=== PATIENT | male | born 1965 | race Caucasian/White ===

== ENCOUNTER 2020-06-17 11:35 | Emergency (ER) | payer OTHER ==
[2020-06-17 12:06] VITALS: BP 107/74; PULSE 78; RESP 16; TEMP 98
[2020-06-17] MEDS ORDERED: THIAMINE 100 MG TAB PO STA (13:04)
--- NOTE | 2020-06-17 13:04 | ED ---
General Adult HPI - General Chief complaint: Alcohol Stated complaint: Alcohol withdrawl Time Seen by Provider: 06/17/20 12:03 Source: patient, RN notes reviewed Mode of arrival: wheelchair Limitations: no limitations - History of Present Illness Initial comments: Patient is a pleasant 5-year-old male presenting to the emergency department concerns regarding his alcohol use. Patient states he was at [facility] however he was intoxicated so they sent him here. Patient has no complaints at this time. Patient does admit to drinking alcohol, beers as well as fire ball daily. No depression. No suicidal thoughts. Patient requests a prescription for medical clearance so he can go back to [facility]. - Related Data Allergies Allergy/AdvReac Type Severity Reaction Status Date / Time No Known Allergies Allergy Verified 06/17/20 12:06 Review of Systems ROS Statement: Those systems with pertinent positive or pertinent negative responses have been documented in the HPI. ROS Other: All systems not noted in ROS Statement are negative. Constitutional: Denies: fever Eyes: Denies: eye pain ENT: Denies: ear pain Respiratory: Denies: cough Cardiovascular: Denies: chest pain Endocrine: Denies: fatigue Gastrointestinal: Denies: abdominal pain Genitourinary: Denies: dysuria Musculoskeletal: Denies: back pain Skin: Denies: rash Neurological: Denies: weakness Past Medical History Past Medical History: Hypertension History of Any Multi-Drug Resistant Organisms: None Reported Past Surgical History: No Surgical Hx Reported Past Psychological History: No Psychological Hx Reported Smoking Status: Current every day smoker Past Alcohol Use History: Abuse, Daily, Heavy Past Drug Use History: None Reported General Exam Limitations: no limitations General appearance: alert, in no apparent distress Head exam: Present: normocephalic Eye exam: Present: normal appearance Neck exam: Present: normal inspection Respiratory exam: Present: normal lung sounds bilaterally Cardiovascular Exam: Present: regular rate, normal rhythm GI/Abdominal exam: Present: soft. Absent: tenderness Extremities exam: Present: normal inspection Neurological exam: Present: alert, oriented X3, normal gait Psychiatric exam: Present: normal affect, normal mood Skin exam: Present: normal color Course Vital Signs 06/17/20 12:03 Temperature 98 F Pulse Rate 78 Respiratory 16 Rate Blood Pressure 107/74 O2 Sat by Pulse 98 Oximetry - Reevaluation(s) Reevaluation #1: 06/17/20 13:05 Patient is alert and oriented 3 and does demonstrate steady gait. Patient does have a female a company him who will take him back to [facility]. Disposition Clinical Impression: Alcoholic intoxication Disposition: HOME SELF-CARE Condition: Stable Instructions (If sedation given, give patient instructions): Alcohol Intoxication (ED), Alcohol Withdrawal (ED) Additional Instructions: Please head back to [facility] for probable admission and detox. Prescription provided stating that you are medically stable for [facility]. Return for confusion, worsening or change in symptoms or other concerns. Is patient prescribed a controlled substance at d/c from ED?: No Referrals: Patrick Mora [STAFF PHYSICIAN] - 1-2 days Time of Disposition: 13:06
== END 2020-06-17 13:24 | disposition home or self-care (01) ==
LOC: EC 11:35
DX: F10.129 Alcohol abuse with intoxication, unspecified (principal); F17.200 Nicotine dependence, unspecified, uncomplicated
CPT/HCPCS: 99284

== ENCOUNTER 2020-06-20 03:21 | Inpatient (IN) | payer OTHER ==
[2020-06-20] MEDS ORDERED: SODIUM CHLORIDE 0.9% 1,000 ML IV ONE (03:24)
[2020-06-20] MEDS ORDERED: THIAMINE 100 MG/ML 2 ML VIAL IVP STA (03:24)
[2020-06-20] MEDS ORDERED: THIAMINE 100 MG/ML 2 ML VIAL IM STA (03:24)
[2020-06-20] MEDS ORDERED: SODIUM CHLORIDE 0.9% 1,000 ML IV STA ×2 (03:24)
[2020-06-20] MEDS ORDERED: LORazepam 2 MG/ML INJ IV STA (03:24)
[2020-06-20] MEDS ORDERED: LORazepam 2 MG/ML INJ IV PRN ×3 (03:24)
[2020-06-20] MEDS ORDERED: SODIUM CHLORIDE 0.9% 500 ML 500 ML IV STA (03:24)
--- NOTE | 2020-06-20 03:26 | ED ---
Altered Mental Status HPI - General Stated Complaint: Detox Time Seen by Provider: 06/20/20 03:24 Source: RN notes reviewed, old records reviewed Limitations: no limitations - History of Present Illness Initial Comments: This is a 55-year-old male DF for evaluation patient Dese for evaluation regards to altered mental status delirious not seeing well. Patient is on 3 days of not drinking. History of alcoholism. Patient presents for evaluation regarding to seeing things that aren't there. Patient is a poor strain secondary to clinical condition. Denying any headache chest pain shortness breath or abdominal pain no fevers MD Complaint: altered mental status, confusion, other (Delirious) -: hour(s) Severity: moderate Consistency of Symptoms: getting worse Context: alcohol abuse Associated Symptoms: weakness - Related Data Allergies Allergy/AdvReac Type Severity Reaction Status Date / Time No Known Allergies Allergy Verified 06/17/20 12:06 Review of Systems ROS Statement: Those systems with pertinent positive or pertinent negative responses have been documented in the HPI. ROS Other: All systems not noted in ROS Statement are negative. Past Medical History Past Medical History: Hypertension History of Any Multi-Drug Resistant Organisms: None Reported Past Surgical History: No Surgical Hx Reported Past Psychological History: No Psychological Hx Reported Smoking Status: Current every day smoker Past Alcohol Use History: Abuse, Daily, Heavy Past Drug Use History: None Reported General Exam Limitations: altered mental status General appearance: alert, other (Patient is seeing things that aren't there) Head exam: Present: atraumatic, normocephalic, normal inspection Eye exam: Present: normal appearance, PERRL, EOMI. Absent: scleral icterus, conjunctival injection, periorbital swelling ENT exam: Present: normal exam, mucous membranes moist Neck exam: Present: normal inspection. Absent: tenderness, meningismus, lymphadenopathy Respiratory exam: Present: normal lung sounds bilaterally. Absent: respiratory distress, wheezes, rales, rhonchi, stridor Cardiovascular Exam: Present: regular rate, normal rhythm, normal heart sounds. Absent: systolic murmur, diastolic murmur, rubs, gallop, clicks GI/Abdominal exam: Present: soft, normal bowel sounds. Absent: distended, tenderness, guarding, rebound, rigid Extremities exam: Present: normal inspection, full ROM, normal capillary refill. Absent: tenderness, pedal edema, joint swelling, calf tenderness Back exam: Present: normal inspection Neurological exam: Present: alert, oriented X3, CN II-XII intact Psychiatric exam: Present: normal affect, normal mood Skin exam: Present: warm, dry, intact, normal color. Absent: rash Course Vital Signs 06/20/20 03:23 Temperature 97.8 F Pulse Rate 74 Respiratory 18 Rate Blood Pressure 180/114 O2 Sat by Pulse 100 Oximetry - Reevaluation(s) Reevaluation #1: 06/20/20 04:01 Medical record is reviewed Reevaluation #2: 06/20/20 04:09 Patient still is seeing things that aren't there - Consultations Consultation #1: Spoke with sound OKAY FOR ADMISSION Medical Decision Making - Medical Decision Making 55 male to the ER for evaluation patient has significant altered mental status going through active DTs. - Lab Data Result diagrams: 06/20/20 03:34 06/20/20 03:34 Disposition Clinical Impression: Delirium tremens Disposition: ADMITTED IP TO THIS [facility] Condition: Serious Is patient prescribed a controlled substance at d/c from ED?: No
[2020-06-20 03:42] LABS: Basophils % (A) 1 %; Eosinophils # (A) 0.2 k/uL (0-0.7); Eosinophils % (A) 4 %; HCT 41.2 % (39.0-53.0); HGB 13.5 gm/dL (13.0-17.5); Lymphocytes # (A) 1.1 k/uL (1.0-4.8); Lymphocytes % (A) 24 %; MCH 31.7 pg (25.0-35.0); MCHC 32.8 g/dL (31.0-37.0); MCV 96.7 fL (80.0-100.0); Mean Platelet Volume 9.6; Monocytes # (A) 0.4 k/uL (0-1.0); Monocytes % (A) 10 %; Neutrophils # (A) 2.6 k/uL (1.3-7.7); Neutrophils % (A) 59 %; RBC 4.26 m/uL (4.30-5.90); RDW 13.8 % (11.5-15.5); WBC 4.5 k/uL (3.8-10.6)
[2020-06-20 03:53] LABS: INR 0.9 (<1.2); Prothrombin Time 9.5 sec (9.0-12.0)
[2020-06-20 03:58] LABS: ALT 52 U/L (4-49); AST 165 U/L (17-59); African American GFR (CKD) >90 (>60 ml/min/1.73 sqM); Albumin 3.8 g/dL (3.5-5.0); Alcohol <10 mg/dL; Alkaline Phosphatase 135 U/L (38-126); Anion Gap 6 mmol/L; Blood Urea Nitrogen 5 mg/dL (9-20); Carbon Dioxide 26 mmol/L (22-30); Chloride 100 mmol/L (98-107); Glucose 145 mg/dL (74-99); Magnesium 1.4 mg/dL (1.6-2.3); Non-African American GFR(CKD) >90 (>60 ml/min/1.73 sqM); Phosphorus 3.2 mg/dL (2.5-4.5); Potassium 3.6 mmol/L (3.5-5.1); Sodium 132 mmol/L (137-145); Total Bilirubin 0.7 mg/dL (0.2-1.3); Total Protein 6.8 g/dL (6.3-8.2)
[2020-06-20 04:03] LABS: Platelet Count 77 k/uL (150-450)
[2020-06-20] MEDS ORDERED: DIAZEPAM 5 MG/ML 2 ML INJ IVP STA (04:11)
[2020-06-20] MEDS ORDERED: DIAZEPAM 5 MG/ML 2 ML INJ IVP SCH (04:15)
[2020-06-20] MEDS: MAGNESIUM SULFATE-D5W PMX 1 GM in DEXTROSE/WATER 1 100ML.BAG IVPB SCH ×4 (04:42→11:22)
--- NOTE | 2020-06-20 05:04 | P.HPIM ---
History of Present Illness H&P Date: 06/20/20 Patient is a 55-year-old male with a PMH of alcohol abuse who was sent in from [place] for suspected alcohol withdrawal with shakiness and unsteadiness. The patient reports that he had been drinking over a 1/5 of heavy liquor daily for the past several decades. He reports that his last drink was 3 days ago, after which he was admitted at [facility]. He reports a previous history of occult withdrawal though denied ICU admission or history of withdrawal seizures. He reports visual hallucinations over the past 24 hours along with an unsteady gait and feeling uneasy. Denied chest pain, shortness breath or fever, chills, cough, nausea, abdominal pain, or vomiting. In the emergency room, laboratory evaluation revealed an AST of 165, ALT 52, alkaline phosphatase 135, magnesium 1.4, sodium 132, BUN 5, creatinine 0.66, platelet count 77, and serum alcohol level less than 10. Review of Systems Pertinent positives and negatives as discussed in HPI, a complete review of systems was performed and all other systems are negative. Past Medical History Past Medical History: Hypertension History of Any Multi-Drug Resistant Organisms: None Reported Past Surgical History: No Surgical Hx Reported Past Psychological History: No Psychological Hx Reported Smoking Status: Current every day smoker Past Alcohol Use History: Abuse, Daily, Heavy Past Drug Use History: None Reported Medications and Allergies Allergies Allergy/AdvReac Type Severity Reaction Status Date / Time No Known Allergies Allergy Verified 06/17/20 12:06 Physical Exam Vitals: Vital Signs Temp Pulse Resp BP Pulse Ox 06/20/20 04:42 66 16 168/105 100 06/20/20 03:23 97.8 F 74 18 180/114 100 Intake and Output 06/19/20 06/19/20 06/20/20 14:59 22:59 06:59 Other: Weight 79.379 kg General: non toxic, tremulous male in no distress, appears at stated age, normal weight Derm: no unusual rashes/lesions no unusual ecchymoses, warm, dry Head: atraumatic, normocephalic, symmetric Eyes: EOMI, no lid lag, anicteric sclera, pupils equal round reactive to light ENT: Nose and ears atraumatic, no thrush, no pharyngeal erythema Neck: No thyromegaly, no cervical lymphadenopathy, trachea midline, supple Mouth: no lip lesion, mucus membranes moist Cardiovascular: S1S2 reg, no murmur, positive posterior tibial pulse bilateral, no edema, capillary refill less than 2 seconds Lungs: CTA bilateral, no rhonchi, no rales , no accessory muscle use Abdominal: soft, nontender to palpation, no guarding, no appreciable organomegaly, normal bowel sounds Ext: no gross muscle atrophy, muscle strength 5 out of 5 in all 4 extremities grossly, no contractures, Neuro: Tremulous, CN II-XI grossly intact, light touch intact all 4 extremities, no outstretched hand tremor with tongue fasciculations Psych: Alert, oriented, appropriate affect Results CBC & Chem 7: 06/20/20 03:34 06/20/20 03:34 Labs: Abnormal Lab Results - Last 24 Hours (Table) 06/20/20 06/20/20 Range/Units 03:34 03:34 RBC 4.26 L (4.30-5.90) m/uL Plt Count 77 L (150-450) k/uL Sodium 132 L (137-145) mmol/L BUN 5 L (9-20) mg/dL Glucose 145 H (74-99) mg/dL Magnesium 1.4 L (1.6-2.3) mg/dL AST 165 H (17-59) U/L ALT 52 H (4-49) U/L Alkaline Phosphatase 135 H (38-126) U/L Assessment and Plan Plan: Delirium tremens -[facility] protocol -Cardiac monitoring -Monitor electrolytes and replace accordingly -Thiamine, folate, multivitamin -Fall, aspiration, seizure precautions -IV fluids Thrombocytopenia, likely secondary to alcohol abuse -Monitor for now Hypomagnesemia -Replace and monitor DVT prophylaxis -Heparin subq The patient is admitted with an anticipated greater than 2 midnight stay for evaluation of delirium tremens CODE STATUS: Full Code Discussed with: Patient Anticipated discharge date: 2-[address]: [facility] A total of 35 minutes was spent on the care of this complex patient more than 50% of the time was spent in counseling and care coordination.
[2020-06-20 06:10] VITALS: RESP 18
[2020-06-20 07:32] LABS: HCT 40.8 % (39.0-53.0); MCH 31.5 pg (25.0-35.0); MCHC 31.8 g/dL (31.0-37.0); MCV 98.9 fL (80.0-100.0); Mean Platelet Volume 8.8; RBC 4.12 m/uL (4.30-5.90); RDW 13.8 % (11.5-15.5); WBC 4.4 k/uL (3.8-10.6)
[2020-06-20 07:43] LABS: ALT 49 U/L (4-49); AST 139 U/L (17-59); African American GFR (CKD) >90 (>60 ml/min/1.73 sqM); Albumin 3.4 g/dL (3.5-5.0); Alkaline Phosphatase 117 U/L (38-126); Anion Gap 7 mmol/L; Blood Urea Nitrogen 3 mg/dL (9-20); Calcium 8.2 mg/dL (8.4-10.2); Carbon Dioxide 23 mmol/L (22-30); Chloride 105 mmol/L (98-107); Glucose 98 mg/dL (74-99); Magnesium 1.7 mg/dL (1.6-2.3); Non-African American GFR(CKD) >90 (>60 ml/min/1.73 sqM); Potassium 3.1 mmol/L (3.5-5.1); Sodium 135 mmol/L (137-145); Total Bilirubin 0.7 mg/dL (0.2-1.3); Total Protein 6.3 g/dL (6.3-8.2)
[2020-06-20 07:46] LABS: Platelet Count 78 k/uL (150-450)
[2020-06-20] MEDS: FOLIC ACID 1 MG TAB PO SCH (08:37)
[2020-06-20] MEDS: POTASSIUM CHLORIDE ER 20 MEQ TAB.ER PO SCH ×2 (08:37→10:29)
[2020-06-20] MEDS: HEPARIN SODIUM,PORCINE 5,000 UNIT/ML 1 ML VIAL SQ SCH ×3 (08:37→23:42)
[2020-06-20] MEDS: MULTIVITAMINS, THERA 1 EACH TAB PO SCH (08:37)
[2020-06-20] MEDS: THIAMINE 100 MG in SODIUM CHLORIDE 0.9% 50 ML IVPB SCH ×2 (08:44→20:44)
[2020-06-20] MEDS ORDERED: ACETAMINOPHEN TAB 325 MG TAB PO PRN (09:10)
--- NOTE | 2020-06-20 09:11 | P.PN ---
Subjective Progress Note Date: 06/20/20 Principal diagnosis: withdrawal He is a 55-year-old male with a history of alcohol abuse, hypertension, and tobacco abuse who was sent in from [place] secondary to s haking and unsteadiness with a suspected was due to alcohol withdrawal. On arrival he was hypertensive with a blood pressure of 180/114. Laboratory analysis showed platelet count of 77, sodium 132, magnesium 1.4, AST 165, ALT 52, and serum alcohol was undetectable. He was given a dose of Valium, his magnesium was replaced, and he was started on thiamine supplementation. Arrangements were made for admission secondary to severe alcohol withdrawal that the patient had been hallucinating and hypertensive. He was started on CIWA protocol, he was maintained on IV thiamine. Patient seen and examined at bedside. He reports that his hallucinations are better, shakiness and better, no diaphoresis, no headache, no tactile cessation. He does not plan on returning to [place]. General: non toxic, mild distress, appears at stated age Derm: warm, dry Head: atraumatic, normocephalic, symmetric Eyes: EOMI, no lid lag, anicteric sclera Mouth: no lip lesion, mucus membranes moist Cardiovascular: S1S2 reg, no murmur, positive posterior tibial pulse bilateral, Lungs: CTA bilateral, no rhonchi, no rales , no accessory muscle use Abdominal: soft, nontender to palpation, no guarding, no appreciable organomegaly Ext: no gross muscle atrophy, no edema, no contractures Neuro: CN II-XI grossly intact, no focal neuro deficits, asterixis Psych: Alert, oriented, appropriate affect Delirium tremens -[facility] protocol -Cardiac monitoring -Thiamine, folic acid supplementation -Fall precautions -IV fluids Thrombocytopenia -Likely related to alcohol use versus cirrhosis -Follow CBC Hypomagnesemia, hypokalemia -Replace and recheck Tobacco abuse -Cessation -Nicotine replacement DVT prophylaxis: Heparin Discussed with: Patient, Nursing Anticipated discharge: in [place] if withdrawal improved Anticipated discharge place: home A total of 35 minutes was spent on the care of this complex patient more than 50% of the time was spent in counseling and care coordination. Objective - Vital Signs Vital signs: Vital Signs Temp 97.5 F L 06/20/20 06:09 Pulse 68 06/20/20 06:09 Resp 18 06/20/20 06:09 BP 179/99 06/20/20 06:09 Pulse Ox 99 06/20/20 06:09 Intake & Output 06/19/20 06/20/20 06/20/20 18:59 06:59 18:59 Intake Total 0 Balance 0 Weight 79.379 kg Intake: Oral 0 Other: # Voids 0 - Labs CBC & Chem 7: 06/20/20 07:06 06/20/20 07:06 Labs: Abnormal Lab Results - Last 24 Hours (Table) 06/20/20 06/20/20 06/20/20 Range/Units 03:34 03:34 07:06 RBC 4.26 L 4.12 L (4.30-5.90) m/uL Plt Count 77 L 78 L (150-450) k/uL Sodium 132 L (137-145) mmol/L Potassium (3.5-5.1) mmol/L BUN 5 L (9-20) mg/dL Creatinine (0.66-1.25) mg/dL Glucose 145 H (74-99) mg/dL Calcium (8.4-10.2) mg/dL Magnesium 1.4 L (1.6-2.3) mg/dL AST 165 H (17-59) U/L ALT 52 H (4-49) U/L Alkaline Phosphatase 135 H (38-126) U/L Albumin (3.5-5.0) g/dL 06/20/20 Range/Units 07:06 RBC (4.30-5.90) m/uL Plt Count (150-450) k/uL Sodium 135 L (137-145) mmol/L Potassium 3.1 L (3.5-5.1) mmol/L BUN 3 L (9-20) mg/dL Creatinine 0.55 L (0.66-1.25) mg/dL Glucose (74-99) mg/dL Calcium 8.2 L (8.4-10.2) mg/dL Magnesium (1.6-2.3) mg/dL AST 139 H (17-59) U/L ALT (4-49) U/L Alkaline Phosphatase (38-126) U/L Albumin 3.4 L (3.5-5.0) g/dL
[2020-06-20] MEDS ORDERED: THIAMINE 100 MG TAB PO SCH (17:30)
[2020-06-20] MEDS: NICOTINE 14MG/24HR PATCH TRANSDERM SCH (20:44)
[2020-06-21 07:36] LABS: HCT 42.8 % (39.0-53.0); HGB 14.1 gm/dL (13.0-17.5); MCH 32.2 pg (25.0-35.0); MCV 97.6 fL (80.0-100.0); Mean Platelet Volume 9.2; RBC 4.38 m/uL (4.30-5.90); RDW 13.9 % (11.5-15.5); WBC 4.9 k/uL (3.8-10.6)
[2020-06-21 07:39] LABS: Platelet Count 84 k/uL (150-450)
[2020-06-21] MEDS: MULTIVITAMINS, THERA 1 EACH TAB PO SCH (07:52)
[2020-06-21] MEDS: FOLIC ACID 1 MG TAB PO SCH (07:53)
[2020-06-21] MEDS: HEPARIN SODIUM,PORCINE 5,000 UNIT/ML 1 ML VIAL SQ SCH ×2 (07:53→17:34)
[2020-06-21] MEDS: NICOTINE 14MG/24HR PATCH TRANSDERM SCH (07:53)
[2020-06-21 07:56] LABS: ALT 60 U/L (4-49); AST 149 U/L (17-59); African American GFR (CKD) >90 (>60 ml/min/1.73 sqM); Albumin 3.2 g/dL (3.5-5.0); Alkaline Phosphatase 103 U/L (38-126); Anion Gap 5 mmol/L; Blood Urea Nitrogen <2 mg/dL (9-20); Calcium 8.3 mg/dL (8.4-10.2); Carbon Dioxide 25 mmol/L (22-30); Chloride 105 mmol/L (98-107); Glucose 86 mg/dL (74-99); Magnesium 1.7 mg/dL (1.6-2.3); Non-African American GFR(CKD) >90 (>60 ml/min/1.73 sqM); Potassium 3.5 mmol/L (3.5-5.1); Sodium 135 mmol/L (137-145); Total Bilirubin 0.7 mg/dL (0.2-1.3); Total Protein 6.1 g/dL (6.3-8.2)
[2020-06-21] MEDS ORDERED: LORATADINE 10 MG TAB PO SCH (09:00)
[2020-06-21] MEDS ORDERED: METOPROLOL TARTRATE 50 MG TAB PO SCH (09:00)
[2020-06-21] MEDS: THIAMINE 100 MG in SODIUM CHLORIDE 0.9% 50 ML IVPB SCH (11:39)
[2020-06-21 12:26] VITALS: PULSE 69; TEMP 97.7
[2020-06-21] MEDS ORDERED: cloNIDine HCL 0.1 MG TAB PO STA (13:16)
[2020-06-21 17:08] VITALS: BP 168/99
--- NOTE | 2020-06-21 17:24 | P.DS ---
Providers Date of admission: 06/20/20 03:26 Expected date of discharge: 06/21/20 Attending physician: Porfirio Deleon MD Primary care physician: Physician Nonstaff Hospital Course: Discharge Diagnosis: Delirium Tremens Hypertensive urgency Thrombocytopenina Hypomagnesemia Hypokalemia Tobacco abuse Hospital Course: He is a 55-year-old male with a history of alcohol abuse, hypertension, and tobacco abuse who was sent in from [place] secondary to shaking and unsteadiness with a suspected was due to alcohol withdrawal. On arrival he was hypertensive with a blood pressure of 180/114. Laboratory analysis showed platelet count of 77, sodium 132, magnesium 1.4, AST 165, ALT 52, and serum alcohol was undetectable. He was given a dose of Valium, his m agnesium was replaced, and he was started on thiamine supplementation. Arrangements were made for admission secondary to severe alcohol withdrawal that the patient had been hallucinating and hypertensive. He was started on CIWA protocol, he was maintained on IV thiamine. He did not required any additional doses of sushil on06/20. On the morning of 06/21 he was feeling well but continued to be hypertensive and was noted to be off his metoprolol. We restarted this medication and gave one additional dose of catapres. His blood pressure improved and he was determined stable for discharged home. He did not want to return to [place]. He will follow with his family physicains Dr. Burton and will check his blood pressure daily. Patient seen and examined at bedside. No chest pain, no DRISCOLL, no nuasea, no numbness, no tingling. Vital signs reviewed and stable. General: non toxic, no distress, appears at stated age Derm: warm, dry Head: atraumatic, normocephalic, symmetric Eyes: EOMI, no lid lag, anicteric sclera Mouth: no lip lesion, mucus membranes moist Cardiovascular: S1S2 reg, no murmur, positive posterior tibial pulse bilateral, Lungs: CTA bilateral, no rhonchi, no rales , no accessory muscle use Abdominal: soft, nontender to palpation, no guarding, no appreciable organomegaly Ext: no gross muscle atrophy, no edema, no contractures Neuro: CN II-XI grossly intact, no focal neuro deficits Psych: Alert, oriented, appropriate affect A total of 35 minutes of time were spent preparing this complex discharge summary . Patient Condition at Discharge: Stable Plan - Discharge Summary New Discharge Prescriptions: Continue Metoprolol Tartrate [Lopressor] 50 mg PO BID Loratadine [Claritin] 10 mg PO DAILY Discharge Medication List Loratadine [Claritin] 10 mg PO DAILY 06/20/20 [History] Metoprolol Tartrate [Lopressor] 50 mg PO BID 06/20/20 [History] Follow up Appointment(s)/Referral(s): Miguel Burton MD [REFERRING] - 1 Week Nonstaff,Physician [Primary Care Provider] - 1-2 days Patient Instructions/Handouts: Abuse of Alcohol (DC), Chronic Hypertension (DC), Alcohol Withdrawal (DC) Activity/Diet/Wound Care/Special Instructions: Activity: as tolerated Diet: heart healthy Special Instructions: Take blood pressure medications as prescribed Monitor blood pressure once daily Discharge Disposition: HOME SELF-CARE
== END 2020-06-21 17:51 | disposition home or self-care (01) | DRG 897 ==
LOC: EC 03:21 → 5NMEDONC 03:26
PROVIDERS: ADMIT Internal Medicine; ATTEND Internal Medicine
DX: F10.231 Alcohol dependence with withdrawal delirium (principal); Y90.0 Blood alcohol level of less than 20 mg/100 ml; I10 Essential (primary) hypertension; F17.200 Nicotine dependence, unspecified, uncomplicated; E83.42 Hypomagnesemia; D69.59 Other secondary thrombocytopenia; E87.6 Hypokalemia; I16.0 Hypertensive urgency
CPT/HCPCS: 36415; 80053; 80320; 83690; 83735; 84100; 85025; 85027; 85610; 93005; 96361; 96374; 96375; 99285